=== PATIENT | male | born 1965 | race Caucasian/White ===

== ENCOUNTER 2016-07-10 15:21 | Emergency (ER) | payer MEDICARE, OTHER ==
--- NOTE | ~2016-07-10 | CR63 ---
[facility] A Service of [facility] RADIOLOGY TEXT RESULTS PATIENT: LIZ HOLMAN LOCATION: CFTX : 61 UNIT #: [id number] AGE: [address]: Eloisa Reyes APRN SEX: M ORDER DR: [id number] [facility] [address] [place], [place] [address] [id number] E MR#: [id number] Acc #: [id number] NAME: LIZ HOLMAN : 1965 SEX: M STUDY DATE/TIME: 07/10/2016 15:33 UNIT: [facility] ROOM: STUDY DESCRIPTION: CR Chest 2 View Attending Physician: Eloisa Reyes A.P.R.N. Ordering Physician: Ed Doctor [id number] [facility] Primary Care Physician: Renetta Romano M.D. MEDICAL IMAGING REPORT This report is preliminary unless electronic signature is present EXAM Chest x-ray 07/10 INDICATIONS Cough, congestion and shortness of air for 3 weeks. History of hypertension. FINDINGS 2 views of the chest compared with 04/10/2016. Cardiac and mediastinal contours are normal. The lungs remain clear. No pneumothorax is seen. IMPRESSION No active disease and no interval change. Dictated by... Tyrell De Jesus Jr., M.D. THIS IS AN ELECTRONICALLY VERIFIED REPORT Tyrell De Jesus Jr., M.D. at 07/11/2016 1:38 PM FIDEL/jamie TD: 07/11/2016 06:57 JOB #: [id number] MEDICAL IMAGING REPORT Page 1 of 1 COPY
[~2016-07-10 15:21] MED LIST: BACITRACIN15 GM TP; BENTYL20 MG PO; ETODOLAC200 MG PO; GRALISE600 MG PO; GUAIFENSEN DM PO; HUMIRA40 MG/0.1 SQ; HYDROCHLOROTHIA25 MG PO; IMODIUM2 MG PO; LIPITOR20 MG PO; LORTAB 7.5-5001 TAB PO; METHOTREXATE2.5 MG PO; NORVASC PO; PAROXETINE HCL20 MG PO; PERCOCET 10/3251 TAB PO; PHENERGAN25 M1 PO; PREDNISONE10 MG PO; PRILOSEC PO; PROAIR RESPICL90 MCG INH; ZITHROMAX PO
== END 2016-07-10 16:30 | disposition home or self-care (01) ==
LOC: CFTX 15:21
DX: J06.9 Acute upper respiratory infection, unspecified (principal); K02.9 Dental caries, unspecified; F17.210 Nicotine dependence, cigarettes, uncomplicated; I10 Essential (primary) hypertension; K21.9 Gastro-esophageal reflux disease without esophagitis; J44.9 Chronic obstructive pulmonary disease, unspecified; E78.00 Pure hypercholesterolemia, unspecified; M10.9 Gout, unspecified; F32.9 Major depressive disorder, single episode, unspecified; I25.2 Old myocardial infarction; Z88.5 Allergy status to narcotic agent; Z88.8 Allergy status to other drugs, medicaments and biological substances
CPT/HCPCS: 71020; 99283